=== PATIENT | female | born 1965 | race American Indian/Alaskan Native ===

== ENCOUNTER 2019-03-16 17:14 | Emergency (ER) | payer MEDICARE ==
--- NOTE | 2019-03-16 17:24 | Emergency Department Report ---
ED Abdominal Pain HPI - General Stated Complaint: ABD PAIN Time Seen by Provider: 03/16/19 17:17 Source: patient, EMS Mode of arrival: Stretcher Limitations: No Limitations - History of Present Illness Initial Comments: Patient is a 53-year-old male that presents emergency room with complaints of abdominal pain 3 days. Patient states her abdominal pain is her right upper and right lower quadrant. Patient states it is nonradiating. Patient states the pain is worse with movement and better with rest. Patient states the pain is also worse with palpation. Patient denies nausea and vomiting. Patient describes the pain as a fullness and pressure. Patient was brought here via EMS from local psychiatric facility for evaluation and medical clearance of her abdominal pain. Patient has a sitter because the patient is on a 1013. MD Complaint: abdominal pain -: Sudden Location: LUQ, RUQ Radiation: none Migration to: no migration Severity: severe Severity scale (0 -10): 10 Quality: aching, other Consistency: constant Improves With: rest Worsens With: movement Associated Symptoms: denies: nausea, vomiting, diarrhea, fever, chills, constipation, dysuria, hematemesis, hematochezia, melena, hematuria, anorexia, syncope Treatments Prior to Arrival: other - Related Data LMP (females 10-50): unknown Previous Rx's Medication Instructions Recorded Last Taken Type Esomeprazole Magnesium [NexIUM] 40 mg PO QDAY 15 Days #15 03/16/19 Unknown Rx capsule. Allergies Allergy/AdvReac Type Severity Reaction Status Date / Time latex Allergy Unknown Verified 03/16/19 17:35 levofloxacin [From Levaquin] Allergy Unknown Verified 03/16/19 17:35 Sulfa (Sulfonamide Allergy Unknown Verified 03/16/19 17:35 Antibiotics) ED Review of Systems ROS: Stated complaint: ABD PAIN Other details as noted in HPI Comment: All other systems reviewed and negative Constitutional: denies: chills, fever Eyes: denies: eye pain, eye discharge, vision change ENT: denies: ear pain, throat pain Respiratory: denies: cough, shortness of breath, wheezing Cardiovascular: denies: chest pain, palpitations Endocrine: no symptoms reported Gastrointestinal: abdominal pain. denies: nausea, vomiting, diarrhea Genitourinary: denies: urgency, dysuria, discharge Musculoskeletal: denies: back pain, joint swelling, arthralgia Skin: denies: rash, lesions Neurological: denies: headache, weakness, paresthesias Psychiatric: denies: anxiety, depression Hematological/Lymphatic: denies: easy bleeding, easy bruising ED Past Medical Hx - Past Medical History Previous Medical History?: Yes Hx Hypertension: Yes Hx Diabetes: Yes Hx GERD: Yes Hx Arthritis: Yes Hx Psychiatric Treatment: Yes Hx COPD: Yes Additional medical history: hypothyroidism - Medications Home Medications: Home Medications Medication Instructions Recorded Confirmed Last Taken Type Esomeprazole Magnesium [NexIUM] 40 mg PO QDAY 15 Days #15 03/16/19 Unknown Rx capsule. ED Physical Exam - General Limitations: No Limitations General appearance: alert, in no apparent distress - Head Head exam: Present: atraumatic, normocephalic - Eye Eye exam: Present: normal appearance - ENT ENT exam: Present: mucous membranes moist - Neck Neck exam: Present: normal inspection - Respiratory Respiratory exam: Present: normal lung sounds bilaterally. Absent: respiratory distress, wheezes - Cardiovascular Cardiovascular Exam: Present: regular rate, normal rhythm. Absent: systolic murmur, diastolic murmur, rubs, gallop - GI/Abdominal GI/Abdominal exam: Present: soft, tenderness (right upper quadrant and epigastric tenderness), normal bowel sounds - Extremities Exam Extremities exam: Present: normal inspection - Back Exam Back exam: Present: normal inspection - Neurological Exam Neurological exam: Present: alert, oriented X3 - Psychiatric Psychiatric exam: Present: normal affect, normal mood - Skin Skin exam: Present: warm, dry, intact, normal color. Absent: rash ED Course Vital Signs 03/16/19 03/16/19 03/17/19 17:26 17:34 00:02 Temperature 98.3 F 98.4 F Pulse Rate 69 68 Respiratory 18 18 16 Rate Blood Pressure 136/95 Blood Pressure 136/95 154/72 [Left] O2 Sat by Pulse 100 100 Oximetry - Reevaluation(s) Reevaluation #1: I discussed all results with patient. Patient is stable for discharge. Patient will be discharged home. Patient agrees with plan of care. Patient given discharge instructions. Patient voiced understanding discharge instructions. 03/16/19 20:48 ED Medical Decision Making - Lab Data Result diagrams: 03/16/19 04:34 03/16/19 17:41 - Radiology Data Radiology results: report reviewed CT ABDOMEN AND PELVIS WITH IV CONTRAST INDICATION: Abdominal Pain. COMPARISON: None available. TECHNIQUE: All CT scans at this facility use dose modulation, automated exposure control, iterative reconstruction or weight based dosing, when appropriate, to reduce radiation dose to as low as reasonably achievable. FINDINGS: Lung Bases: No significant abnormality. Skeletal System: No acute abnormality. ABDOMEN: Liver: There are multiple hypodense lesions in the liver which demonstrate peripheral, nodular discontinuous enhancement. The largest in the medial right lobe measures 4.6 cm on coronal image 84. There is also subtle hyperenhancing focus in the superior left hepatic lobe. These are likely hemangiomas. Gallbladder: Removed. Bile Ducts: No significant abnormality. Pancreas: No significant abnormality. Spleen: No significant abnormality. Adrenals: There is a subcentimeter left adrenal nodule which is likely an adenoma. Right Kidney: No significant abnormality. Left Kidney: No significant abnormality. Upper GI tract: No significant abnormality. Lymph Nodes: No significant adenopathy. Aorta: No significant abnormality. Additional Findings: No significant abnormality. PELVIS: Colon: Normal aside from diverticulosis. Urinary Bladder and Distal Ureters: There is artifact related to the arthroplasty which limits evaluation of the distal ureters and bladder. Appendix: No significant abnormality. Lymph Nodes: No significant adenopathy. Additional Findings: None. IMPRESSION: 1. No acute process in the abdomen or pelvis. 2. Incidental findings, as above. - Medical Decision Making Patient is a 53-year-old female that presents emergency room with complaints of right upper quadrant and right lower quadrant pain. Patient presented from a local psychiatric facility. Patient's labs unremarkable. Patient has CT done and was negative for acute findings. Patient's exam is consistent with gastritis. Patient has a surgically removed gallbladder. Patient given Nexium for gastritis. pt discharge back to her psychiatric facility. - Differential Diagnosis abdominal pain. Gastritis. Gastroenteritis. Constipation. Critical care attestation.: If time is entered above; I have spent that time in minutes in the direct care of this critically ill patient, excluding procedure time. ED Disposition Clinical Impression: Abdominal pain Qualifiers: Abdominal location: upper abdomen, unspecified Qualified Code(s): R10.10 - Upper abdominal pain, unspecified Gastritis Qualifiers: Gastritis type: unspecified gastritis Chronicity: acute Gastritis bleeding: without bleeding Qualified Code(s): K29.00 - Acute gastritis without bleeding Disposition: TO HOME OR SELFCARE Is pt being admited?: No Does the pt Need Aspirin: No Condition: Stable Instructions: Gastritis (ED), Diet for Ulcers and Gastritis (ED), Gastroesophageal Reflux Disease (ED), Abdominal Pain (ED) Additional Instructions: Patient to be discharged from the ER and return to her psychiatric facility. Patient to follow up with primary care in 2-3 days. Patient to return to ER if condition worsens. Patient to take meds as directed. Patient increase water. Patient to take Tylenol when necessary for pain. Patient to eat a reflux diet. Prescriptions: Esomeprazole Magnesium [NexIUM] 40 mg PO QDAY 15 Days #15 capsule.dr Referrals: AAM[facility] W[facility]WORTH MD VALDEMAR [Primary Care Provider] - 3-5 Days Time of Disposition: 20:52
[2019-03-16 17:52] LABS: Bilirubin,Urine NEG (Negative); Blood,Urine NEG (Negative); Color,Urine Straw (Yellow); Protein,Urine <15 mg/dL mg/dL (Negative); Urobilinogen,Urine < 2.0 mg/dL (<2.0)
[2019-03-16 18:52] LABS: Basophils % (Auto) 0.3 % (0.0-1.8); Eosinophils # (Auto) 0.1 K/mm3 (0.0-0.4); Eosinophils % (Auto) 1.2 % (0.0-4.3); Hematocrit 37.7 % (30.3-42.9); Hemoglobin 12.2 gm/dl (10.1-14.3); Lymphocytes # (Auto) 2.7 K/mm3 (1.2-5.4); Lymphocytes % (Auto) 28.6 % (13.4-35.0); Mean Corpuscular HGB Conc 33 % (30-34); Mean Corpuscular Volume 92 fl (79-97); Monocytes # (Auto) 0.5 K/mm3 (0.0-0.8); Monocytes % (Auto) 4.8 % (0.0-7.3); Platelet Count 235 K/mm3 (140-440); Red Cell Distribution Width 15.7 % (13.2-15.2)
[2019-03-16 19:16] LABS: Alanine Aminotransferase 43 units/L (7-56); Albumin 4.1 g/dL (3.9-5); BUN/Creatinine Ratio 20; Blood Urea Nitrogen 16 mg/dL (7-17); Calcium 9.6 mg/dL (8.4-10.2); Hemolysis Index 11
[2019-03-16 19:33] LABS: Bilirubin,Direct < 0.2 mg/dL (0-0.2)
[2019-03-16] MEDS ORDERED: DILAUDID IV ONE (19:47)
--- NOTE | 2019-03-16 20:22 | Cat Scan Report ---
CT ABDOMEN AND PELVIS WITH IV CONTRAST INDICATION: Abdominal Pain. COMPARISON: None available. TECHNIQUE: All CT scans at this facility use dose modulation, automated exposure control, iterative reconstructi on or weight based dosing, when appropriate, to reduce radiation dose to as low as reasonably achieva ble. FINDINGS: Lung Bases: No significant abnormality. Skeletal System: No acute abnormality. ABDOMEN: Liver: There are multiple hypodense lesions in the liver which demonstrate peripheral, nodular discon tinuous enhancement. The largest in the medial right lobe measures 4.6 cm on coronal image 84. There is also subtle hyperenhancing focus in the superior left hepatic lobe. These are likely hemangiomas. Gallbladder: Removed. Bile Ducts: No significant abnormality. Pancreas: No significant abnormality. Spleen: No significant abnormality. Adrenals: There is a subcentimeter left adrenal nodule which is likely an adenoma. Right Kidney: No significant abnormality. Left Kidney: No significant abnormality. Upper GI tract: No significant abnormality. Lymph Nodes: No significant adenopathy. Aorta: No significant abnormality. Additional Findings: No significant abnormality. PELVIS: Colon: Normal aside from diverticulosis. Urinary Bladder and Distal Ureters: There is artifact related to the arthroplasty which limits evalua tion of the distal ureters and bladder. Appendix: No significant abnormality. Lymph Nodes: No significant adenopathy. Additional Findings: None. IMPRESSION: 1. No acute process in the abdomen or pelvis. 2. Incidental findings, as above. Signer Name: Paul House MD Signed: 03/16/2019 8:18 PM Workstation Name: [id number]
[2019-03-16] MEDS ORDERED: LIDOCAINE VISCOUS 2% PO ONE (20:52)
[2019-03-16] MEDS ORDERED: ALUM-MAG HYDROX-SIMETH 200-200-20MG/5ML PO ONE (20:52)
[2019-03-17 00:03] VITALS: BP 154/72
== END 2019-03-17 00:02 | disposition home or self-care (01) ==
LOC: ED 17:14
DX: K29.00 Acute gastritis without bleeding (principal); I10 Essential (primary) hypertension; E11.9 Type 2 diabetes mellitus without complications; K21.9 Gastro-esophageal reflux disease without esophagitis; M19.90 Unspecified osteoarthritis, unspecified site; J44.9 Chronic obstructive pulmonary disease, unspecified; E03.9 Hypothyroidism, unspecified; Z91.040 Latex allergy status; Z88.1 Allergy status to other antibiotic agents; Z88.2 Allergy status to sulfonamides
CPT/HCPCS: 36415; 74177; 80048; 80076; 81001; 85025; 96374; 99285; J1170; Q9967

== ENCOUNTER 2019-03-23 20:00 | Emergency (ER) | payer MEDICARE ==
[2019-03-23] MEDS ORDERED: ALBUTEROL 2.5 MG/3 ML NEBU IH ONE (20:55)
[2019-03-23] MEDS ORDERED: predniSONE 50 MG TAB PO STA (20:55)
[2019-03-23 21:28] LABS: Basophils # (Auto) 0.1 K/mm3 (0.0-0.1); Basophils % (Auto) 0.9 % (0.0-1.8); Eosinophils # (Auto) 0.2 K/mm3 (0.0-0.4); Eosinophils % (Auto) 2.5 % (0.0-4.3); Hematocrit 35.7 % (30.3-42.9); Lymphocytes % (Auto) 41.1 % (13.4-35.0); Mean Corpuscular HGB Conc 34 % (30-34); Mean Corpuscular Volume 91 fl (79-97); Monocytes # (Auto) 0.4 K/mm3 (0.0-0.8); Monocytes % (Auto) 5.9 % (0.0-7.3); Platelet Count 249 K/mm3 (140-440); Red Blood Count 3.92 M/mm3 (3.65-5.03); Red Cell Distribution Width 15.8 % (13.2-15.2)
--- NOTE | 2019-03-23 21:44 | Emergency Department Report ---
Blank Doc - Documentation Documentation: 53 y/o morbidly obese female c/o of sob and left arm tingling with worsening s yptoms for the last 1-2 days. symptoms worsen with movement. known asthma history and reports wheezing the last few days not responding to therapy.
[2019-03-23 21:53] LABS: Alanine Aminotransferase 27 units/L (7-56); Albumin 4.3 g/dL (3.9-5); BUN/Creatinine Ratio 16; Blood Urea Nitrogen 16 mg/dL (7-17); Calcium 9.2 mg/dL (8.4-10.2); Hemolysis Index 17
--- NOTE | 2019-03-23 22:08 | XRay Report ---
CHEST 2 VIEWS INDICATION / CLINICAL INFORMATION: Dyspnea. COMPARISON: None available. FINDINGS: SUPPORT DEVICES: None. HEART / MEDIASTINUM: No significant abnormality. LUNGS / PLEURA: No significant pulmonary or pleural abnormality. No pneumothorax. ADDITIONAL FINDINGS: No significant additional findings. IMPRESSION: 1. No acute findings. Signer Name: Johnnie Lorenz MD Signed: 03/23/2019 10:03 PM Workstation Name: [id number]
[2019-03-23] MEDS ORDERED: traMADol 50 MG TAB PO ONE (23:51)
[2019-03-24] MEDS ORDERED: ALBUTEROL 2.5 MG/3 ML NEBU IH ONE (00:20)
[2019-03-24] MEDS ORDERED: predniSONE 50 MG TAB ONE (00:28)
[2019-03-24] MEDS ORDERED: cloNIDine 0.2 MG TAB PO ONE (01:35)
[2019-03-24] MEDS ORDERED: HYDROcodone/ACETAMINOPHEN 5-325 MG TAB PO ONE (01:35)
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
[2019-03-24 05:15] VITALS: BP 168/98
== END 2019-03-24 03:20 | disposition home or self-care (01) ==
LOC: ED 20:00
DX: J44.1 Chronic obstructive pulmonary disease with (acute) exacerbation (principal); I16.0 Hypertensive urgency; I11.0 Hypertensive heart disease with heart failure; I50.9 Heart failure, unspecified; E11.9 Type 2 diabetes mellitus without complications; K21.9 Gastro-esophageal reflux disease without esophagitis; E89.0 Postprocedural hypothyroidism; Z86.73 Personal history of transient ischemic attack (TIA), and cerebral infarction without residual deficits; Z79.899 Other long term (current) drug therapy; Z88.1 Allergy status to other antibiotic agents; Z88.2 Allergy status to sulfonamides; Z91.040 Latex allergy status
CPT/HCPCS: 36415; 71046; 80053; 84484; 85025; 94640; 99284; J7512; 94644

== ENCOUNTER 2019-04-03 17:06 | Emergency (ER) | payer MEDICARE ==
[2019-04-03 17:46] VITALS: BP 144/81
[2019-04-03] MEDS ORDERED: methylPREDNISolone ACETATE 80 MG/1 ML INJ IM ONE (18:24)
[2019-04-03] MEDS ORDERED: CYCLOBENZAPRINE 10 MG TAB PO ONE (18:24)
[2019-04-03] MEDS ORDERED: IBUPROFEN 800 MG TAB PO ONE (18:24)
--- NOTE | 2019-04-03 18:25 | Emergency Department Report ---
ED Back Pain/Injury HPI - General Chief Complaint: Fall Stated Complaint: LEFT SIDE INJURY Time Seen by Provider: 04/03/19 18:24 Source: patient Limitations: No Limitations - History of Present Illness Initial Comments: 53 yo AA female comes to ER from [facility]. Last night she sat on the end of the bed and it let go and she fell to the floor. She was fine then but today the staff noted her limping so they sent her to the ER to be evaluated. pt ambulatory to ER. Being treated for depression at [facility]. no si. no hi. MD Complaint: back pain -: Sudden, days(s) Similar Symptoms Previously: Yes Radiation: none Severity: moderate Quality: dull Improves With: immobilization Worsens With: movement Associated Symptoms: denies other symptoms - Related Data Previous Rx's Medication Instructions Recorded Last Taken Type Esomeprazole Magnesium [NexIUM] 40 mg PO QDAY 15 Days #15 03/16/19 Unknown Rx capsule. ALBUTEROL Inhaler (OR & NICU) 2 puff IH QID PRN #1 inhalation 03/24/19 Unknown Rx [ProAir HFA Inhaler] Benzonatate [Tessalon Perles] 100 mg PO Q8HR #10 capsule 03/24/19 Unknown Rx HYDROcodone/APAP 5-325 [[place] 1 each PO Q6HR PRN #10 tablet 03/24/19 Unknown Rx 5/325] cloNIDine [Catapres] 0.1 mg PO BID #30 tablet 03/24/19 Unknown Rx predniSONE [Deltasone] 20 mg PO QDAY #5 tab 03/24/19 Unknown Rx tiZANidine [Zanaflex 4mg TAB] 4 mg PO Q8H PRN #15 tablet 04/03/19 Unknown Rx traMADol [Ultram] 50 mg PO Q6HR PRN #12 tablet 04/03/19 Unknown Rx Allergies Allergy/AdvReac Type Severity Reaction Status Date / Time latex Allergy Unknown Verified 04/03/19 17:46 levofloxacin [From Levaquin] Allergy Unknown Verified 04/03/19 17:46 Sulfa (Sulfonamide Allergy Unknown Verified 04/03/19 17:46 Antibiotics) ED Review of Systems ROS: Stated complaint: LEFT SIDE INJURY Other details as noted in HPI Comment: All other systems reviewed and negative ED Past Medical Hx - Past Medical History hypothyroidism, OBESE, MD Psychiatric history: no pertinent history CLINICAL NURSE MANAGER history: no CLINICAL NURSE MANAGER history ED Back Pain Physical Exam - Exam General: Vital signs noted. No distress. Alert and acting appropriately. neurovascular intact ambulatory full rom of leg Back/Abdomen: No Abdominal Tenderness, No Perithoracic Tenderness, No Perilumbar Tenderness, No Sacroiliac Tenderness, No Flank Tenderness, No Straight Leg Raise Pain Neuro: Yes Normal Sensation, Yes Normal DTR's, Yes Normal Gait, No Motor Weakness ED Course Vital Signs 04/03/19 17:45 Temperature 98.4 F Pulse Rate 83 Respiratory 18 Rate Blood Pressure 144/81 [Right] O2 Sat by Pulse 97 Oximetry Ed Back Pain Tests - Tests Tests: Normal X Rays ED Medical Decision Making - Radiology Data Radiology results: report reviewed, image reviewed - Medical Decision Making SP FALL XRAY NOTED MEDICATED FOR PAIN DC BACK TO [facility] WITH PCP FOLLOW UP Vital Signs 04/03/19 17:45 Temperature 98.4 F Pulse Rate 83 Respiratory 18 Rate Blood Pressure 144/81 [Right] O2 Sat by Pulse 97 Oximetry - Differential Diagnosis RO FX Critical care attestation.: If time is entered above; I have spent that time in minutes in the direct care of this critically ill patient, excluding procedure time. ED Disposition Clinical Impression: Fall from ground level, Hip pain, Back pain, Contusion Disposition: DC-01 TO HOME OR SELFCARE Is pt being admited?: No Does the pt Need Aspirin: No Condition: Stable Additional Instructions: WARM BATHS AND COMPRESSES MED ORDERED TODAY FOLLOW UP WITH PCP IF PAIN PERSISTS. Prescriptions: traMADol [Ultram] 50 mg PO Q6HR PRN #12 tablet PRN Reason: Pain tiZANidine [Zanaflex 4mg TAB] 4 mg PO Q8H PRN #15 tablet PRN Reason: Muscle Spasm Referrals: BLAYNE GABRIEL MD [Staff Physician] - 3-5 Days Time of Disposition: 18:34
[2019-04-03] MEDS ORDERED: traMADol 50 MG TAB PO ONE (19:41)
--- NOTE | 2019-04-03 20:11 | XRay Report ---
LEFT HIP, 3 VIEWS 04/03/2019 INDICATION / CLINICAL INFORMATION: PAIN SP FALL. COMPARISON: None available. FINDINGS: Bilateral: Hip arthroplasty. No evidence of acute fracture. No prosthesis dislocation. Signer Name: Johnnie Lorenz MD Signed: 04/03/2019 8:07 PM Workstation Name: [id number]
== END 2019-04-03 20:42 | disposition home or self-care (01) ==
LOC: ED 17:06
DX: S70.02XA Contusion of left hip, initial encounter (principal); M25.552 Pain in left hip; Z88.2 Allergy status to sulfonamides; Z88.1 Allergy status to other antibiotic agents; Z91.040 Latex allergy status; W06.XXXA Fall from bed, initial encounter; Y93.89 Activity, other specified; Y92.89 Other specified places as the place of occurrence of the external cause; Y99.8 Other external cause status
CPT/HCPCS: 73502; 96372; 99283; J1040

== ENCOUNTER 2019-06-22 15:43 | Inpatient (IN) | payer MEDICARE ==
[2019-06-22] MEDS ORDERED: IPRATROPIUM 0.02% NEBU 2.5 ML IH ONE (16:07)
[2019-06-22] MEDS ORDERED: ALBUTEROL 2.5 MG/3 ML NEBU IH ONE ×2 (16:07→18:22)
[2019-06-22] MEDS ORDERED: methylPREDNISolone Sod Succinate 125 MG/2 ML INJ IV ONE (16:08)
[2019-06-22] MEDS ORDERED: FUROSEMIDE 40 MG/4 ML INJ IV ONE (16:18)
--- NOTE | 2019-06-22 16:23 | Emergency Department Report ---
ED Shortness of Breath HPI - General Chief Complaint: Dyspnea/Respdistress Stated Complaint: RESP DISTRESS Time Seen by Provider: 06/22/19 16:15 Source: EMS Mode of arrival: Stretcher Limitations: No Limitations - History of Present Illness Initial Comments: Patient is 53 years old female with history of COPD, congestive heart failure, hypertension. Patient presented to the ER via EMS for evaluation of difficulty breathing and shortness of breath for the last 3 days, worse today. Patient stated that she has been coughing greenish sputum also. Patient stated that she is out of her Lasix for the last 7 days. Patient denied any fever or chills. No chest pain. MD Complaint: shortness of breath, cough -: days(s) Severity: moderate Pain Scale: 7 Known History Of: COPD, congestive heart failure Context: recent URI Treatments Prior to Arrival: oxygen, bronchodilator - Related Data Previous Rx's Medication Instructions Recorded Last Taken Type Esomeprazole Magnesium [NexIUM] 40 mg PO QDAY 15 Days #15 03/16/19 Unknown Rx capsule. ALBUTEROL Inhaler (OR & NICU) 2 puff IH QID PRN #1 inhalation 03/24/19 Unknown R x [ProAir HFA Inhaler] Benzonatate [Tessalon Perles] 100 mg PO Q8HR #10 capsule 03/24/19 Unknown Rx HYDROcodone/APAP 5-325 [[place] 1 each PO Q6HR PRN #10 tablet 03/24/19 Unknown Rx 5/325] cloNIDine [Catapres] 0.1 mg PO BID #30 tablet 03/24/19 Unknown Rx predniSONE [Deltasone] 20 mg PO QDAY #5 tab 03/24/19 Unknown Rx tiZANidine [Zanaflex 4mg TAB] 4 mg PO Q8H PRN #15 tablet 04/03/19 Unknown Rx traMADoL [Ultram] 50 mg PO Q6HR PRN #12 tablet 04/03/19 Unknown Rx Allergies Allergy/AdvReac Type Severity Reaction Status Date / Time latex Allergy Unknown Verified 04/03/19 17:46 levofloxacin [From Levaquin] Allergy Unknown Verified 04/03/19 17:46 Sulfa (Sulfonamide Allergy Unknown Verified 04/03/19 17:46 Antibiotics) ED Review of Systems ROS: Stated complaint: RESP DISTRESS Other details as noted in HPI Comment: All other systems reviewed and negative Constitutional: denies: chills, fever Respiratory: cough, orthopnea, shortness of breath, SOB with exertion, SOB at rest, wheezing Cardiovascular: dyspnea on exertion, orthopnea. 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 ALBUTEROL Inhaler (OR & NICU) 2 puff IH QID PRN #1 inhalation 03/24/19 Unknown Rx [ProAir HFA Inhaler] Benzonatate [Tessalon Perles] 100 mg PO Q8HR #10 capsule 03/24/19 Unknown Rx HYDROcodone/APAP 5-325 [[place] 1 each PO Q6HR PRN #10 tablet 03/24/19 Unknown Rx 5/325] cloNIDine [Catapres] 0.1 mg PO BID #30 tablet 03/24/19 Unknown Rx predniSONE [Deltasone] 20 mg PO QDAY #5 tab 03/24/19 Unknown Rx tiZANidine [Zanaflex 4mg TAB] 4 mg PO Q8H PRN #15 tablet 04/03/19 Unknown Rx traMADoL [Ultram] 50 mg PO Q6HR PRN #12 tablet 04/03/19 Unknown Rx ED Physical Exam - General Limitations: No Limitations General appearance: alert, in distress (moderate respiratory distress) - Head Head exam: Present: atraumatic, normocephalic, normal inspection - Eye Eye exam: Present: normal appearance - ENT ENT exam: Present: normal exam, normal orophraynx, mucous membranes moist - Neck Neck exam: Present: normal inspection, full ROM. Absent: tenderness, meningismus - Respiratory Respiratory exam: Present: respiratory distress, wheezes, rales, rhonchi, accessory muscle use, decreased breath sounds, prolonged expiratory. Absent: stridor - Cardiovascular Cardiovascular Exam: Present: regular rate, normal rhythm, normal heart sounds - GI/Abdominal GI/Abdominal exam: Present: soft, normal bowel sounds. Absent: distended, tenderness, guarding, rebound, rigid, organomegaly, mass, bruit, pulsatile mass, hernia - Extremities Exam Extremities exam: Present: normal inspection, full ROM, normal capillary refill. Absent: pedal edema, calf tenderness - Back Exam Back exam: Present: normal inspection, full ROM. Absent: CVA tenderness (R), CVA tenderness (L) - Neurological Exam Neurological exam: Present: alert, oriented X3, CN II-XII intact, normal gait, reflexes normal - Psychiatric Psychiatric exam: Present: normal mood - Skin Skin exam: Present: warm, intact, normal color ED Course Vital Signs 06/22/19 06/22/19 06/22/19 15:58 16:00 16:10 Temperature 99.0 F Pulse Rate 83 85 Pulse Rate [ 90 Anterior Bilateral Throughout] Respiratory 25 H 19 Rate Respiratory 20 Rate [Anterior Bilateral Throughout] Blood Pressure 152/80 Blood Pressure 152/80 [Left] O2 Sat by Pulse 98 98 Oximetry 06/22/19 06/22/19 06/22/19 16:30 16:58 17:30 Temperature Pulse Rate 85 Pulse Rate [ Anterior Bilateral Throughout] Respiratory 18 Rate Respiratory Rate [Anterior Bilateral Throughout] Blood Pressure 157/102 162/81 Blood Pressure [Left] O2 Sat by Pulse 99 96 Oximetry 06/22/19 06/22/19 17:57 18:00 Temperature Pulse Rate 94 H 107 H Pulse Rate [ Anterior Bilateral Throughout] Respiratory 26 H 22 Rate Respiratory Rate [Anterior Bilateral Throughout] Blood Pressure 114/62 Blood Pressure 114/62 [Left] O2 Sat by Pulse 96 92 Oximetry ED Medical Decision Making - Lab Data Result diagrams: 06/22/19 16:54 - EKG Data -: EKG Interpreted by Wy EKG shows normal: sinus rhythm Rate: normal - EKG Data Interpretation: no acute changes - Radiology Data Radiology results: report reviewed - Medical Decision Making Patient is 53 years old female with history of COPD, congestive heart failure, hypertension. Patient presented to the ER via EMS for evaluation of difficulty breathing and shortness of breath for the last 3 days, worse today. Patient stated that she has been coughing greenish sputum also. Patient stated that she is out of her Lasix for the last 7 days. Patient denied any fever or chills. No chest pain. Patient received albuterol 10 mg twice, Atrovent 1 mg, 20 mg of Decadron and 2 g of magnesium sulfate. Patient stated that she is feeling better but still having difficulty breathing with diffuse wheezing. Labs reviewed and is unremarkable. Chest x-ray is unremarkable. I discussed the patient is Dr. Barrientos, he agreed to admit the patient to medical service for further management. Critical Care Time: Yes Critical care time in (mins) excluding proc time.: 30 Critical care attestation.: If time is entered above; I have spent that time in minutes in the direct care of this critically ill patient, excluding procedure time. ED Disposition Clinical Impression: COPD exacerbation, Acute exacerbation of CHF (congestive heart failure) Disposition: OP ADMIT IP TO THIS HOSP Is pt being admited?: Yes Condition: Stable Instructions: Chronic Obstructive Pulmonary Disease (ED)
--- NOTE | 2019-06-22 16:46 | XRay Report ---
CHEST 1 VIEW INDICATION: MAIN: sob; Pt reports difficulty breathing that started today at about 1 pm. Unrelieved by Albuterol inhaler at home. Hx of Asthma, COPD, CHF, and DM 2. . COMPARISON: 03/23/2019. FINDINGS: Support devices: None. Heart: Within normal limits. Lungs/Pleura: No acute air space or interstitial disease. Additional findings: None. IMPRESSION: No acute abnormality. Signer Name: Helio Rebollar MD Signed: 06/22/2019 4:41 PM Workstation Name: [id number]
[2019-06-22 17:11] LABS: Basophils % (Auto) 0.6 % (0.0-1.8); Eosinophils # (Auto) 0.1 K/mm3 (0.0-0.4); Eosinophils % (Auto) 0.9 % (0.0-4.3); Hematocrit 35.7 % (30.3-42.9); Hemoglobin 11.7 gm/dl (10.1-14.3); Lymphocytes # (Auto) 1.6 K/mm3 (1.2-5.4); Lymphocytes % (Auto) 23.9 % (13.4-35.0); Mean Corpuscular HGB Conc 33 % (30-34); Mean Corpuscular Volume 89 fl (79-97); Monocytes # (Auto) 0.3 K/mm3 (0.0-0.8); Platelet Count 277 K/mm3 (140-440); Red Blood Count 4.02 M/mm3 (3.65-5.03); Red Cell Distribution Width 15.7 % (13.2-15.2)
[2019-06-22 17:22] LABS: INR 0.99 (0.87-1.13)
[2019-06-22 17:29] LABS: Alanine Aminotransferase 23 units/L (7-56); Albumin 3.7 g/dL (3.9-5)
[2019-06-22] MEDS ORDERED: methylPREDNISolone Sod Succinate 125 MG/2 ML INJ ONE (17:53)
[2019-06-22 18:03] LABS: Bilirubin,Direct < 0.2 mg/dL (0-0.2)
[2019-06-22] MEDS ORDERED: MORPHINE 4 MG/1 ML INJ IV ONE (18:41)
[2019-06-22] MEDS ORDERED: ONDANSETRON 4 MG/2 ML INJ IV ONE (18:41)
[2019-06-22 19:12] LABS: BUN/Creatinine Ratio 13; Blood Urea Nitrogen 14 mg/dL (7-17); Calcium 8.6 mg/dL (8.4-10.2); Hemolysis Index 38
[2019-06-22] MEDS ORDERED: MORPHINE 4 MG/1 ML INJ ONE ×2 (19:37→19:44)
[2019-06-22] MEDS ORDERED: ONDANSETRON 4 MG/2 ML INJ ONE (19:38)
[2019-06-22] MEDS ORDERED: POTASSIUM CHLORIDE ER 20 MEQ TAB PO ONE ×2 (20:04→20:28)
[2019-06-22] MEDS ORDERED: DEXTROSE 50% IN WATER (25GM) 50 ML SYRINGE IV PRN (20:09)
[2019-06-22] MEDS ORDERED: ACETAMINOPHEN 325 MG TAB PO PRN (20:09)
[2019-06-22] MEDS ORDERED: ONDANSETRON 4 MG/2 ML INJ IV PRN (20:09)
--- NOTE | 2019-06-22 20:25 | History and Physical Report ---
History of Present Illness Date of examination: 06/22/19 Date of admission: 06/22/19 18:43 Chief complaint: SOB History of present illness: 53-year-old -Irish female who is an ongoing smoker with a history of COPD, CHF, hypertension, diabetes, GERD, arthritis, hypothyroidism, TIA x5 who presents to [facility] ED via EMS with complaints of shortness of breath and difficulty breathing for the past 3 days. Patient states that she has been experiencing progressively worsening shortness of breath over the past 3 days. She is unable to walk more than 10 feet without becoming short of breath. Patient was at [facility] today when she suddenly became short of breath and felt like she could not breathe. She tried using her rescue inhaler with no relief. EMS was called and patient was transferred to our facility for further evaluation and management. Patient states she was admitted to the [facility] 1 week ago for similar complaints. She also complains of frequent cough with green sputum production. Patient states that she takes Lasix but ran out about a week ago and has not been able to get a new prescription. Admits shortness of breath at rest, worsening shortness of breath with exertion, orthopnea, wheezing, and discolored sputum production. Denies fever, nausea, vomiting, headache, or hemoptysis. 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 ALBUTEROL Inhaler (OR & NICU) 2 puff IH QID PRN #1 inhalation 03/24/19 Unknown Rx [ProAir HFA Inhaler] Benzonatate [Tessalon Perles] 100 mg PO Q8HR #10 capsule 03/24/19 Unknown Rx HYDROcodone/APAP 5-325 [[place] 1 each PO Q6HR PRN #10 tablet 03/24/19 Unknown Rx 5/325] cloNIDine [Catapres] 0.1 mg PO BID #30 tablet 03/24/19 Unknown Rx predniSONE [Deltasone] 20 mg PO QDAY #5 tab 03/24/19 Unknown Rx tiZANidine [Zanaflex 4mg TAB] 4 mg PO Q8H PRN #15 tablet 04/03/19 Unknown Rx traMADoL [Ultram] 50 mg PO Q6HR PRN #12 tablet 04/03/19 Unknown Rx Active Meds: Active Medications Acetaminophen (Tylenol) 650 mg PO Q4H PRN PRN Reason: Pain MILD(1-3)/Fever >100.5/MALDONADO Albuterol/Ipratropium (Duoneb *Not For Prn Use*) 1 ampul IH Q6HRT RADAMES Budesonide (Pulmicort) 0.5 mg IH Q12HRT RADAMES Clonidine HCl (Catapres) 0.1 mg PO BID RADAMES Dextrose (D50w (25gm) Syringe) 50 ml IV Q30MIN PRN; Protocol PRN Reason: Hypoglycemia Docusate Sodium (Colace) 100 mg PO BID RADAMES Guaifenesin (Mucinex Er) 600 mg PO BID RADAMES Heparin Sodium (Porcine) (Heparin) 5,000 unit SUB-Q Q12HR RADAMES Hydralazine HCl (Apresoline) 10 mg IV Q4HR PRN PRN Reason: Blood Pressure Potassium Chloride (Kcl 10meq/100ml) 10 meq in 100 mls @ 100 mls/hr IV Q1H [facility] Stop: 06/22/19 22:09 Ceftriaxone Sodium (Rocephin/Ns 1 Gm/50 Ml) 1 gm in 50 mls @ 100 mls/hr IV Q24HR RADAMES; Protocol Azithromycin 500 mg/ Sodium (Chloride) 250 mls @ 250 mls/hr IV Q24HR RADAMES; P rotocol Insulin Glargine (Lantus) 10 units SUB-Q QHS RADAMES Insulin Human Lispro (Humalog) 0 unit SUB-Q ACHS RADAMES; Protocol Methylprednisolone Sodium Succinate (Solu-Medrol) 80 mg IV Q8HR RADAMES Ondansetron HCl (Zofran) 4 mg IV Q8H PRN PRN Reason: Nausea And Vomiting Pantoprazole Sodium (Protonix) 40 mg PO BID RADAMES Sodium Chloride (Sodium Chloride Flush Syringe 10 Ml) 10 ml IV BID RADAMES Sodium Chloride (Sodium Chloride Flush Syringe 10 Ml) 10 ml IV PRN PRN PRN Reason: LINE FLUSH Review of Systems All systems: negative Cardiovascular: orthopnea, shortness of breath, dyspnea on exertion Respiratory: cough, cough with sputum (greenish sputum), shortness of breath, wheezing Exam - Physical Exam Narrative exam: Physical exam General appearance: Present: mild distress, alert and oriented 3, obese, adult female - EENT Eyes: Present: PERRL, EOM intact ENT: hearing intact, normal dentition - Neck Neck: Present: supple, normal ROM - Respiratory Respiratory effort: slightly labored on 4L supplemental O2 Respiratory: scattered wheezing - Cardiovascular Heart rate: 91 (bpm) Rhythm: Sinus rhythm Heart Sounds: Present: S1 & S2. Absent: rub, click - Extremities Extremities: no ischemia, pulses intact, - Peripheral Assessment Peripheral Pulses: within normal limits - Abdominal General gastrointestinal: obese, soft, non-tender, normal bowel sounds - Integumentary Integumentary: Present: warm, dry - Musculoskeletal Musculoskeletal: Able to move all extremities -Neurological Neurological: CN II-XII intact - Psychiatric Psychiatric:tearful ,cooperative - Constitutional Vitals: Temp Pulse Resp BP Pulse Ox 99.0 F 94 H 20 114/62 94 06/22/19 15:58 06/22/19 18:35 06/22/19 19:46 06/22/19 18:00 06/22/19 19:18 Results - Labs CBC & Chem 7: 06/22/19 16:54 06/22/19 16:54 Labs: Laboratory Last Values WBC 6.6 K/mm3 (4.5-11.0) 06/22/19 16:54 RBC 4.02 M/mm3 (3.65-5.03) 06/22/19 16:54 Hgb 11.7 gm/dl (10.1-14.3) 06/22/19 16:54 Hct 35.7 % (30.3-42.9) 06/22/19 16:54 MCV 89 fl (79-97) 06/22/19 16:54 MCH 29 pg (28-32) 06/22/19 16:54 MCHC 33 % (30-34) 06/22/19 16:54 RDW 15.7 % (13.2-15.2) H 06/22/19 16:54 Plt Count 277 K/mm3 (140-440) 06/22/19 16:54 Lymph % (Auto) 23.9 % (13.4-35.0) 06/22/19 16:54 [place] % (Auto) 4.0 % (0.0-7.3) 06/22/19 16:54 Eos % (Auto) 0.9 % (0.0-4.3) 06/22/19 16:54 Baso % (Auto) 0.6 % (0.0-1.8) 06/22/19 16:54 Lymph # 1.6 K/mm3 (1.2-5.4) 06/22/19 16:54 [place] # 0.3 K/mm3 (0.0-0.8) 06/22/19 16:54 Eos # 0.1 K/mm3 (0.0-0.4) 06/22/19 16:54 Baso # 0.0 K/mm3 (0.0-0.1) 06/22/19 16:54 Seg Neutrophils % 70.6 % (40.0-70.0) H 06/22/19 16:54 Seg Neutrophils # 4.7 K/mm3 (1.8-7.7) 06/22/19 16:54 PT 13.2 Sec. (12.2-14.9) 06/22/19 16:54 INR 0.99 (0.87-1.13) 06/22/19 16:54 Sodium 139 mmol/L (137-145) 06/22/19 16:54 Potassium 2.9 mmol/L (3.6-5.0) L* 06/22/19 16:54 Chloride 94.8 mmol/L (98-107) L 06/22/19 16:54 Carbon Dioxide 23 mmol/L (22-30) 06/22/19 16:54 Anion Gap 24 mmol/L 06/22/19 16:54 BUN 14 mg/dL (7-17) 06/22/19 16:54 Creatinine 1.1 mg/dL (0.7-1.2) 06/22/19 16:54 Estimated GFR > 60 ml/min 06/22/19 16:54 BUN/Creatinine Ratio 13 % 06/22/19 16:54 Glucose 212 mg/dL (65-100) H 06/22/19 16:54 Calcium 8.6 mg/dL (8.4-10.2) 06/22/19 16:54 Total Bilirubin < 0.20 mg/dL (0.1-1.2) 06/22/19 16:54 Direct Bilirubin < 0.2 mg/dL (0-0.2) 06/22/19 16:54 Indirect Bilirubin 0.0 mg/dL 06/22/19 16:54 AST 19 units/L (5-40) 06/22/19 16:54 ALT 23 units/L (7-56) 06/22/19 16:54 Alkaline Phosphatase 68 units/L (35-129) 06/22/19 16:54 Troponin T < 0.010 ng/mL (0.00-0.029) 06/22/19 16:54 NT-Pro-B Natriuret Pep 183.7 pg/mL (0-900) 06/22/19 16:54 Total Protein 7.1 g/dL (6.3-8.2) 06/22/19 16:54 Albumin 3.7 g/dL (3.9-5) L 06/22/19 16:54 Albumin/Globulin Ratio 1.1 % 06/22/19 16:54 - Imaging and Cardiology Imaging and Cardiology: CXR: Lung/pleura: No acute airspace or interstitial disease. Impression: no acute abnormality Assessment and Plan Assessment and plan: 53-year-old -Irish female who is an ongoing smoker with a history of COPD, CHF, hypertension, diabetes, GERD, arthritis, hypothyroidism, TIA x5 who presents to [facility] ED via EMS with complaints of progressively worsening shortness of breath and difficulty breathing for the past 3 days. Acute exacerbation COPD -Increased shortness of breath -Increased cough with green sputum production -Scheduled to DuoNebs and Pulmicort, albuterol when necessary -Patient has allergy to Levaquin will start on Rocephin and azithromycin -Start Mucinex -IV systemic steroids Acute hypoxic respiratory failure -No Baseline home oxygen requirements -Saturation in mid 80s on room air -Currently on supplemental O2 -Monitor saturations -Continue supplemental oxygen wean as tolerated Hypokalemia -Potassium on admission 2.9 -Ordered potassium replacement -Continue to monitor replete prn HTN -Monitor BP -Resume home hypertensive meds once medication reconciliation has been completed -IV hydralazine when necessary DM -POC BG monitoring -Scheduled Lantus, and SSI coverage prn -HgbA1C pending GERD -on Protonix BID Obesity -BMI 45.2 -Diet and lifestyle modifications -May benefit from OP weight mgmt program -Pt states that she plans on going to obesity class Tobacco abuse -Current every day smoker -Smokes 1 pack per day -Counseled for cessation -Nicotine patch when necessary Hx CHF -BNP WNL -Troponin negative -Resume home Lasix once medication reconciliation has been completed DVT PPX -On Heparin and SCD's Advance Directives: No VTE prophylaxis?: Chemical Plan of care discussed with patient/family: Yes
[2019-06-22] MEDS: PANTOPRAZOLE 40 MG TAB PO SCH (21:30)
[2019-06-22] MEDS: guaiFENesin ER 600 MG TAB PO SCH (21:30)
[2019-06-22] MEDS: cloNIDine 0.1 MG TAB PO SCH (21:30)
[2019-06-22] MEDS: HEPARIN 5,000 UNIT/1 ML VIAL SUB-Q SCH (21:31)
[2019-06-22] MEDS: methylPREDNISolone Sod Succinate 125 MG/2 ML INJ IV SCH (21:31)
[2019-06-22] MEDS: DOCUSATE SODIUM 100 MG CAP PO SCH (21:31)
[2019-06-22] MEDS: NICOTINE 14 MG/24 HR PATCH TD SCH (21:32)
[2019-06-22] MEDS ORDERED: SODIUM CHLORIDE 0.9% 250ML 250 ML IV ONE (21:33)
[2019-06-22] MEDS: cefTRIAXone/NS 1 GM/50 ML 1 GM/50 ML BAG IV SCH (22:27)
[2019-06-22] MEDS: INSULIN LISPRO 100 UNIT/ML SUB-Q SCH (22:28)
[2019-06-22] MEDS: INSULIN GLARGINE 100 UNITS/ML SUB-Q SCH (22:28)
[2019-06-22] MEDS: AZITHROMYCIN 500 MG in SODIUM CHLORIDE 0.9% 250ML 250 ML IV SCH (22:38)
[2019-06-23] MEDS ORDERED: QUEtiapine 50 MG, QUEtiapine 100 MG PO ONE (00:16)
[2019-06-23] MEDS: POTASSIUM CHLORIDE 10 MEQ 10 MEQ/100 ML BAG IV SCH ×2 (00:33→03:00)
[2019-06-23] MEDS: IPRATROPIUM/ALBUTEROL SULFATE 3 ML AMPUL.NEB IH SCH ×4 (04:23→21:33)
[2019-06-23] MEDS: methylPREDNISolone Sod Succinate 125 MG/2 ML INJ IV SCH ×3 (05:25→22:18)
[2019-06-23 05:42] LABS: Basophils % (Auto) 0.1 % (0.0-1.8); Hematocrit 33.9 % (30.3-42.9); Hemoglobin 10.9 gm/dl (10.1-14.3); Lymphocytes # (Auto) 0.7 K/mm3 (1.2-5.4); Lymphocytes % (Auto) 13.5 % (13.4-35.0); Mean Corpuscular HGB Conc 32 % (30-34); Mean Corpuscular Volume 90 fl (79-97); Monocytes # (Auto) 0.1 K/mm3 (0.0-0.8); Monocytes % (Auto) 1.2 % (0.0-7.3); Platelet Count 265 K/mm3 (140-440); Red Blood Count 3.79 M/mm3 (3.65-5.03); Red Cell Distribution Width 15.9 % (13.2-15.2)
[2019-06-23 06:00] LABS: BUN/Creatinine Ratio 14; Blood Urea Nitrogen 15 mg/dL (7-17); Calcium 8.6 mg/dL (8.4-10.2); Hemolysis Index 15
[2019-06-23] MEDS: BUDESONIDE 0.5 MG/2 ML NEBU IH SCH ×2 (08:35→21:32)
[2019-06-23] MEDS: INSULIN LISPRO 100 UNIT/ML SUB-Q SCH ×4 (09:04→22:19)
[2019-06-23] MEDS: NICOTINE 14 MG/24 HR PATCH TD SCH (11:18)
[2019-06-23] MEDS: cefTRIAXone/NS 1 GM/50 ML 1 GM/50 ML BAG IV SCH (11:18)
[2019-06-23] MEDS: cloNIDine 0.1 MG TAB PO SCH ×2 (11:19→22:19)
[2019-06-23] MEDS: guaiFENesin ER 600 MG TAB PO SCH ×2 (11:20→22:20)
[2019-06-23] MEDS: PANTOPRAZOLE 40 MG TAB PO SCH ×2 (11:21→22:19)
[2019-06-23] MEDS: DOCUSATE SODIUM 100 MG CAP PO SCH ×2 (11:21→22:19)
[2019-06-23] MEDS: HEPARIN 5,000 UNIT/1 ML VIAL SUB-Q SCH ×2 (11:21→22:19)
[2019-06-23] MEDS: AZITHROMYCIN 500 MG in SODIUM CHLORIDE 0.9% 250ML 250 ML IV SCH (12:09)
--- NOTE | 2019-06-23 20:36 | Progress Note ---
Assessment and Plan 53-year-old -[place] female who is an ongoing smoker with a history of COPD, CHF, hypertension, diabetes, GERD, arthritis, hypothyroidism, TIA x5 who presents to [facility] ED via EMS with complaints of progressively worsening shortness of breath and difficulty breathing for the past 3 days. Acute exacerbation COPD -Increased shortness of breath -Increased cough with green sputum production -Continue DuoNebs and Pulmicort, Rocephin and azithromycin, and Mucinex. Patient allergic to Levaquin -IV Solu-Medrol Acute hypoxic respiratory failure -No Baseline home oxygen requirements -Saturation in mid 80s on room air -Currently on supplemental O2 -Monitor saturations -Continue supplemental oxygen wean as tolerated Hypokalemia - corrected -Continue to monitor replete prn HTN -Monitor BP -Resume home hypertensive meds once medication reconciliation has been completed -IV hydralazine when necessary DM -POC BG monitoring -Scheduled Lantus, and SSI coverage prn -HgbA1C pending GERD -on Protonix BID Obesity -BMI 45.2 -Diet and lifestyle modifications -May benefit from OP weight mgmt program -Pt states that she plans on going to obesity class Tobacco abuse -Current every day smoker -Smokes 1 pack per day -Counseled for cessation -Nicotine patch when necessary Hx CHF -BNP WNL -Troponin negative -Resume home Lasix once medication reconciliation has been completed DVT PPX -On Heparin and SCD's Advance Directives: No VTE prophylaxis?: Chemical Plan of care discussed with patient/family: Yes Subjective Date of service: 06/23/19 Principal diagnosis: shortness of breath, wheezing, morbid obesity Interval history: Patient still coughing and wheezing. Sitting up in bed and having breakfast Objective - Constitutional Vitals: Vital Signs - 12hr 06/23/19 06/23/19 06/23/19 08:39 10:00 10:42 Temperature Pulse Rate Pulse Rate [ 88 Anterior Bilateral Throughout] Respiratory Rate Respiratory 20 Rate [Anterior Bilateral Throughout] Blood Pressure O2 Sat by Pulse 95 97 Oximetry 06/23/19 06/23/19 06/23/19 11:19 13:39 16:21 Temperature 97.8 F 97.8 F Pulse Rate 83 82 Pulse Rate [ 82 Anterior Bilateral Throughout] Respiratory 20 20 Rate Respiratory 20 Rate [Anterior Bilateral Throughout] Blood Pressure 150/87 116/78 O2 Sat by Pulse 95 92 Oximetry General appearance: Present: no acute distress, well-nourished - EENT Eyes: PERRL, EOM intact Ears: bilateral: normal - Neck Neck: supple, normal ROM - Respiratory Respiratory effort: normal Respiratory: bilateral: diminished, wheezing - Cardiovascular Rhythm: regular Heart Sounds: Present: S1 & S2. Absent: gallop, rub Extremities: pulses intact, No edema, normal color, Full ROM - Gastrointestinal General gastrointestinal: Present: soft, non-tender, non-distended, normal bowel sounds - Integumentary Integumentary: clear, warm, dry - Musculoskeletal Musculoskeletal: 1, strength equal bilaterally - Neurologic Neurologic: moves all extremities - Labs CBC & Chem 7: 06/23/19 05:09 06/23/19 05:09 Labs: Abnormal lab results 06/22/19 06/23/19 06/23/19 Range/Units 21:38 05:09 05:09 RDW 15.9 H (13.2-15.2) % Lymph # 0.7 L (1.2-5.4) K/mm3 Seg Neutrophils % 85.2 H (40.0-70.0) % Glucose 428 H (65-100) mg/dL POC Glucose 435 H (70-105) Hemoglobin A1c (4-6) % 06/23/19 06/23/19 06/23/19 Range/Units 05:09 07:48 11:26 RDW (13.2-15.2) % Lymph # (1.2-5.4) K/mm3 Seg Neutrophils % (40.0-70.0) % Glucose (65-100) mg/dL POC Glucose 325 H 340 H (70-105) Hemoglobin A1c 8.2 H (4-6) % 06/23/19 Range/Units 16:29 RDW (13.2-15.2) % Lymph # (1.2-5.4) K/mm3 Seg Neutrophils % (40.0-70.0) % Glucose (65-100) mg/dL POC Glucose 326 H (70-105) Hemoglobin A1c (4-6) %
[2019-06-23] MEDS: INSULIN GLARGINE 100 UNITS/ML SUB-Q SCH (22:39)
[2019-06-24] MEDS: methylPREDNISolone Sod Succinate 125 MG/2 ML INJ IV SCH ×3 (06:31→22:05)
[2019-06-24] MEDS: BUDESONIDE 0.5 MG/2 ML NEBU IH SCH ×3 (08:10→20:41)
[2019-06-24] MEDS: IPRATROPIUM/ALBUTEROL SULFATE 3 ML AMPUL.NEB IH SCH ×3 (08:10→20:41)
[2019-06-24] MEDS: PANTOPRAZOLE 40 MG TAB PO SCH ×2 (09:07→22:06)
[2019-06-24] MEDS: DOCUSATE SODIUM 100 MG CAP PO SCH ×2 (09:07→22:24)
[2019-06-24] MEDS: HEPARIN 5,000 UNIT/1 ML VIAL SUB-Q SCH ×2 (09:08→22:25)
[2019-06-24] MEDS: guaiFENesin ER 600 MG TAB PO SCH ×2 (09:08→22:06)
[2019-06-24] MEDS: cloNIDine 0.1 MG TAB PO SCH ×2 (09:09→22:06)
[2019-06-24] MEDS: NICOTINE 14 MG/24 HR PATCH TD SCH (09:12)
[2019-06-24] MEDS: INSULIN LISPRO 100 UNIT/ML SUB-Q SCH ×4 (09:12→22:07)
[2019-06-24] MEDS: cefTRIAXone/NS 1 GM/50 ML 1 GM/50 ML BAG IV SCH (09:13)
[2019-06-24] MEDS: AZITHROMYCIN 500 MG in SODIUM CHLORIDE 0.9% 250ML 250 ML IV SCH (11:32)
[2019-06-24] MEDS: HYDROcodone/HOMATROPINE 5-1.5MG /5 ML ORAL LIQD UNIT DOSE PO SCH ×2 (11:32→22:24)
[2019-06-24] MEDS: hydrALAZINE 20 MG/1 ML INJ IV PRN (11:33)
[2019-06-24] MEDS: POLYMYXIN B OU SCH ×4 (15:08→22:21)
[2019-06-24] MEDS: BACITRACIN OU SCH ×4 (15:08→22:21)
[2019-06-24] MEDS: POLYETHYLENE GLYCOL 3350 17 GM POWDER PO PRN (18:21)
[2019-06-24] MEDS: HYDROcodone/ACETAMINOPHEN 5-325 MG TAB PO PRN (18:21)
--- NOTE | 2019-06-24 20:29 | Progress Note ---
Assessment and Plan 53-year-old -[place] female who is an ongoing smoker with a history of COPD, CHF, hypertension, diabetes, GERD, arthritis, hypothyroidism, TIA x5 who presents to [facility] ED via EMS with complaints of progressively worsening shortness of breath and difficulty breathing for the past 3 days. Acute exacerbation COPD -Increased shortness of breath -Increased cough with green sputum production -Continue DuoNebs and Pulmicort, Rocephin and azithromycin, and Mucinex. Patient allergic to Levaquin -IV Solu-Medrol Acute hypoxic respiratory failure -No Baseline home oxygen requirements -Saturation in mid 80s on room air -Currently on supplemental O2 -Monitor saturations -Continue supplemental oxygen wean as tolerated HTN -Monitor BP -Resume home hypertensive meds once medication reconciliation has been completed -IV hydralazine when necessary DM -POC BG monitoring -Scheduled Lantus, and SSI coverage prn -HgbA1C pending GERD -on Protonix BID Obesity -BMI 45.2 -Diet and lifestyle modifications -May benefit from OP weight mgmt program -Pt states that she plans on going to obesity class Tobacco abuse -Current every day smoker -Smokes 1 pack per day -Counseled for cessation -Nicotine patch when necessary Hx CHF -BNP WNL -Troponin negative -Resume home Lasix once medication reconciliation has been completed Pain in the shoulder and knees -Comments patient on Narco DVT PPX -On Heparin and SCD's Advance Directives: No VTE prophylaxis?: Chemical Plan of care discussed with patient/family: Yes Subjective Date of service: 06/24/19 Principal diagnosis: shortness of breath, wheezing, morbid obesity Interval history: Patient still coughing and wheezing. Question narcotic medication for left shoulder and right knee pains. Sitting up in bed Objective - Constitutional Vitals: Vital Signs - 12hr 06/24/19 06/24/19 06/24/19 09:09 10:00 11:00 Temperature 97.6 F Pulse Rate 82 67 Pulse Rate [ Anterior Bilateral Throughout] Respiratory 20 22 Rate Respiratory Rate [Anterior Bilateral Throughout] Blood Pressure 155/81 173/97 O2 Sat by Pulse 96 97 Oximetry 06/24/19 06/24/19 06/24/19 11:33 14:12 17:59 Temperature 97.9 F Pulse Rate 65 86 Pulse Rate [ 65 Anterior Bilateral Throughout] Respiratory 24 Rate Respiratory 22 Rate [Anterior Bilateral Throughout] Blood Pressure 173/97 153/85 O2 Sat by Pulse 95 Oximetry General appearance: Present: no acute distress, well-nourished - EENT Eyes: PERRL, EOM intact Ears: bilateral: normal - Neck Neck: supple, normal ROM - Respiratory Respiratory effort: normal Respiratory: bilateral: diminished - Cardiovascular Rhythm: regular Heart Sounds: Present: S1 & S2. Absent: gallop, rub Extremities: pulses intact, No edema, normal color, Full ROM - Gastrointestinal General gastrointestinal: Present: soft, non-tender, non-distended, normal bowel sounds - Integumentary Integumentary: clear, warm, dry - Musculoskeletal Musculoskeletal: 1, strength equal bilaterally - Neurologic Neurologic: moves all extremities - Psychiatric Psychiatric: memory intact, appropriate mood/affect, intact judgment & insight - Labs CBC & Chem 7: 06/23/19 05:09 06/23/19 05:09 Labs: Abnormal lab results 06/23/19 06/24/19 06/24/19 Range/Units 21:43 08:02 11:13 POC Glucose 291 H 271 H 325 H (70-105) 06/24/19 Range/Units 18:41 POC Glucose 337 H (70-105)
[2019-06-24] MEDS: INSULIN GLARGINE 100 UNITS/ML SUB-Q SCH (22:10)
[2019-06-25] MEDS: HYDROcodone/ACETAMINOPHEN 5-325 MG TAB PO PRN ×3 (00:02→23:01)
[2019-06-25] MEDS: methylPREDNISolone Sod Succinate 125 MG/2 ML INJ IV SCH ×4 (06:09→23:19)
[2019-06-25] MEDS: BUDESONIDE 0.5 MG/2 ML NEBU IH SCH ×2 (08:05→19:55)
[2019-06-25] MEDS: IPRATROPIUM/ALBUTEROL SULFATE 3 ML AMPUL.NEB IH SCH ×3 (08:07→19:55)
[2019-06-25] MEDS: INSULIN LISPRO 100 UNIT/ML SUB-Q SCH ×4 (08:48→23:00)
[2019-06-25] MEDS: HEPARIN 5,000 UNIT/1 ML VIAL SUB-Q SCH ×2 (10:07→23:02)
[2019-06-25] MEDS: cefTRIAXone/NS 1 GM/50 ML 1 GM/50 ML BAG IV SCH (10:08)
[2019-06-25] MEDS: HYDROcodone/HOMATROPINE 5-1.5MG /5 ML ORAL LIQD UNIT DOSE PO SCH ×2 (10:08→23:01)
[2019-06-25] MEDS: cloNIDine 0.1 MG TAB PO SCH ×2 (10:09→23:08)
[2019-06-25] MEDS: PANTOPRAZOLE 40 MG TAB PO SCH ×2 (10:09→23:08)
[2019-06-25] MEDS: DOCUSATE SODIUM 100 MG CAP PO SCH ×2 (10:09→23:02)
[2019-06-25] MEDS: guaiFENesin ER 600 MG TAB PO SCH ×2 (10:09→23:02)
[2019-06-25] MEDS: POLYMYXIN B OU SCH ×4 (10:10→23:10)
[2019-06-25] MEDS: NICOTINE 14 MG/24 HR PATCH TD SCH (10:10)
[2019-06-25] MEDS: BACITRACIN OU SCH ×4 (10:10→23:10)
[2019-06-25] MEDS: AZITHROMYCIN 500 MG in SODIUM CHLORIDE 0.9% 250ML 250 ML IV SCH (11:21)
[2019-06-25] MEDS: POLYETHYLENE GLYCOL 3350 17 GM POWDER PO PRN (11:31)
--- NOTE | 2019-06-25 13:01 | Progress Note ---
Assessment and Plan Assessment and plan: 53-year-old -[place] female who is an ongoing smoker with a history of COPD, CHF, hypertension, diabetes, GERD, arthritis, hypothyroidism, TIA x5 who presents to [facility] ED via EMS with complaints of progressively worsening shortness of breath and difficulty breathing for the past 3 days. Acute exacerbation COPD -Increased shortness of breath -Increased cough with green sputum production -Continue DuoNebs and Pulmicort, Rocephin and azithromycin, and Mucinex. Patient allergic to Levaquin -IV Solu-Medrol will continue to taper Acute hypoxic respiratory failure -No Baseline home oxygen requirements -Saturation in mid 80s on room air -Currently on supplemental O2 recommended to wean. -Monitor saturations -Continue supplemental oxygen wean as tolerated HTN -Monitor BP -Resume home hypertensive meds once medication reconciliation has been completed -IV hydralazine when necessary DM -POC BG monitoring -Scheduled Lantus, and SSI coverage prn -HgbA1C pending GERD -on Protonix BID Obesity -BMI 45.2 -Diet and lifestyle modifications -May benefit from OP weight mgmt program -Pt states that she plans on going to obesity class Tobacco abuse -Current every day smoker -Smokes 1 pack per day -Counseled for cessation -Nicotine patch when necessary Hx CHF -BNP WNL -Troponin negative -Resume home Lasix once medication reconciliation has been completed Pain in the shoulder and knees -Comments patient on Narco DVT PPX -On Heparin and SCD's Patient still with coughing episode rather perfused. For better control of blood sugar insulin has been adjusted. Anticipate discharge in a day or 2 when respiratory status is improved. History Interval history: Patient seen and examined, still reports congestion and cough with shortness of breath, requesting for a stronger cough medication. Hospitalist Physical - Physical exam Narrative exam: VITAL SIGNS: Reviewed. GENERAL: The patient appears normally developed, Vital signs as documented. HEAD: No signs of head trauma. EYES: Pupils are equal. Extraocular motions intact. EARS: Hearing grossly intact. MOUTH: Oropharynx is normal. NECK: No adenopathy, no JVD. CHEST: Chest with diffuse wheezing r breath sounds bilaterally. No rales, or rhonchi. CARDIAC: Regular rate and rhythm. S1 and S2, without murmurs, gallops, or rubs. VASCULAR: No Edema. Peripheral pulses normal and equal in all extremities. ABDOMEN: Soft, non tender and non distended. No rebound or guarding, and no masses palpated. Bowel Sounds normal. MUSCULOSKELETAL: Good range of motion of all major joints. Extremities without clubbing, cyanosis or edema. NEUROLOGIC EXAM: Alert and oriented x 3 No focal sensory or strength deficits. Speech normal truncated by cough otherwise. Follows commands. PSYCHIATRIC: Mood normal. SKIN: detial exam as documented in skin assessment - Constitutional Vitals: Temp Pulse Resp BP Pulse Ox 98.3 F 61 22 138/98 93 06/25/19 11:17 06/25/19 11:17 06/25/19 11:17 06/25/19 11:17 06/25/19 11:17 General appearance: Present: no acute distress, well-nourished Results - Labs CBC & Chem 7: 06/23/19 05:09 06/23/19 05:09 Labs: Laboratory Last Values WBC 5.5 K/mm3 (4.5-11.0) 06/23/19 05:09 RBC 3.79 M/mm3 (3.65-5.03) 06/23/19 05:09 Hgb 10.9 gm/dl (10.1-14.3) 06/23/19 05:09 Hct 33.9 % (30.3-42.9) 06/23/19 05:09 MCV 90 fl (79-97) 06/23/19 05:09 MCH 29 pg (28-32) 06/23/19 05:09 MCHC 32 % (30-34) 06/23/19 05:09 RDW 15.9 % (13.2-15.2) H 06/23/19 05:09 Plt Count 265 K/mm3 (140-440) 06/23/19 05:09 Lymph % (Auto) 13.5 % (13.4-35.0) 06/23/19 05:09 [place] % (Auto) 1.2 % (0.0-7.3) 06/23/19 05:09 Eos % (Auto) 0.0 % (0.0-4.3) 06/23/19 05:09 Baso % (Auto) 0.1 % (0.0-1.8) 06/23/19 05:09 Lymph # 0.7 K/mm3 (1.2-5.4) L 06/23/19 05:09 Archer # 0.1 K/mm3 (0.0-0.8) 06/23/19 05:09 Eos # 0.0 K/mm3 (0.0-0.4) 06/23/19 05:09 Baso # 0.0 K/mm3 (0.0-0.1) 06/23/19 05:09 Seg Neutrophils % 85.2 % (40.0-70.0) H 06/23/19 05:09 Seg Neutrophils # 4.7 K/mm3 (1.8-7.7) 06/23/19 05:09 PT 13.2 Sec. (12.2-14.9) 06/22/19 16:54 INR 0.99 (0.87-1.13) 06/22/19 16:54 Sodium 141 mmol/L (137-145) 06/23/19 05:09 Potassium 4.1 mmol/L (3.6-5.0) D 06/23/19 05:09 Chloride 99.8 mmol/L (98-107) 06/23/19 05:09 Carbon Dioxide 23 mmol/L (22-30) 06/23/19 05:09 Anion Gap 22 mmol/L 06/23/19 05:09 BUN 15 mg/dL (7-17) 06/23/19 05:09 Creatinine 1.1 mg/dL (0.7-1.2) 06/23/19 05:09 Estimated GFR > 60 ml/min 06/23/19 05:09 BUN/Creatinine Ratio 14 % 06/23/19 05:09 Glucose 428 mg/dL (65-100) H 06/23/19 05:09 POC Glucose 382 (70-105) H 06/25/19 11:13 Hemoglobin A1c 8.2 % (4-6) H 06/23/19 05:09 Calcium 8.6 mg/dL (8.4-10.2) 06/23/19 05:09 Total Bilirubin < 0.20 mg/dL (0.1-1.2) 06/22/19 16:54 Direct Bilirubin < 0.2 mg/dL (0-0.2) 06/22/19 16:54 Indirect Bilirubin 0.0 mg/dL 06/22/19 16:54 AST 19 units/L (5-40) 06/22/19 16:54 ALT 23 units/L (7-56) 06/22/19 16:54 Alkaline Phosphatase 68 units/L (35-129) 06/22/19 16:54 Troponin T < 0.010 ng/mL (0.00-0.029) 06/22/19 16:54 NT-Pro-B Natriuret Pep 183.7 pg/mL (0-900) 06/22/19 16:54 Total Protein 7.1 g/dL (6.3-8.2) 06/22/19 16:54 Albumin 3.7 g/dL (3.9-5) L 06/22/19 16:54 Albumin/Globulin Ratio 1.1 % 06/22/19 16:54 Active Medications - Current Medications Current Medications: Generic Name Dose Route Start Last Admin Trade Name Freq PRN Reason Stop Dose Admin Acetaminophen 650 mg 06/22/19 20:09 06/23/19 00:28 Tylenol PO 650 mg Q4H PRN Administration Pain MILD(1-3)/Fever >100.5/MALDONADO Acetaminophen/Hydrocodone Bitart 1 each 06/24/19 18:14 06/25/19 06:09 [place] 5/325 PO 1 each Q6H PRN Administration Pain, Moderate (4-6) Albuterol/Ipratropium 1 ampul 06/23/19 14:00 06/25/19 08:07 Duoneb *Not For Prn Use* IH 1 ampul TIDRT RADAMES Administration Bacitracin/Polymyxin B Sulfate 1 applic 06/24/19 11:00 06/25/19 10:10 Polysporin OU 06/30/19 22:01 1 applic QID RADAMES Administration Budesonide 0.5 mg 06/23/19 08:00 06/25/19 08:05 Pulmicort IH 0.5 mg Q12HRT RADAMES Administration Clonidine HCl 0.1 mg 06/22/19 22:00 06/25/19 10:09 Catapres PO 0.1 mg BID RADAMES Administration Dextrose 50 ml 06/22/19 20:09 D50w (25gm) Syringe IV Q30MIN PRN Hypoglycemia Protocol Docusate Sodium 100 mg 06/22/19 22:00 06/25/19 10:09 Colace PO 100 mg BID RADAMES Administration Guaifenesin 600 mg 06/22/19 22:00 06/25/19 10:09 Mucinex Er PO 600 mg BID RADAMES Administration Guaifenesin 20 ml 06/25/19 12:53 Guaifenesin Dm Syrup PO Q4H PRN Cough Heparin Sodium (Porcine) 5,000 unit 06/22/19 22:00 06/25/19 10:07 Heparin SUB-Q 5,000 unit Q12HR RADAMES Administration Hydralazine HCl 10 mg 06/22/19 20:19 06/24/19 11:33 Apresoline IV 10 mg Q4HR PRN Administration Blood Pressure Hydrocodone Bit/Homatropine Methylb 5 ml 06/24/19 10:00 06/25/19 10:08 Hydromet PO 5 ml BID RADAMES Administration Ceftriaxone Sodium 1 gm in 50 mls @ 100 mls/hr 06/22/19 21:00 06/25/19 10:08 Rocephin/Ns 1 Gm/50 Ml IV 100 mls/hr Q24HR RADAMES Administration Protocol Azithromycin 500 mg/ Sodium 250 mls @ 250 mls/hr 06/22/19 21:00 06/25/19 11:21 Chloride IV 06/26/19 10:59 250 mls/hr Q24HR [facility] Administration Protocol Insulin Glargine 20 units 06/25/19 22:00 Lantus SUB-Q QHS [facility] Insulin Human Lispro 0 unit 06/22/19 22:00 06/25/19 08:48 Humalog SUB-Q 4 unit ACHS [facility] Administration Protocol Methylprednisolone Sodium Succinate 60 mg 06/25/19 11:30 Solu-Medrol IV Q8HR [facility] Nicotine 14 mg 06/22/19 21:00 06/25/19 10:10 Habitrol TD Not Given QDAY [facility] Ondansetron HCl 4 mg 06/22/19 20:09 Zofran IV Q8H PRN Nausea And Vomiting Pantoprazole Sodium 40 mg 06/22/19 22:00 06/25/19 10:09 Protonix PO 40 mg BID RADAMES Administration Polyethylene Glycol 17 gm 06/24/19 17:11 06/25/19 11:31 Miralax 3350 PO 17 gm QDAY PRN Administration Constipation Sodium Chloride 10 ml 06/22/19 22:00 06/25/19 10:11 Sodium Chloride Flush Syringe 10 Ml IV 10 ml BID RADAMES Administration Sodium Chloride 10 ml 06/22/19 20:09 Sodium Chloride Flush Syringe 10 Ml IV PRN PRN LINE FLUSH
[2019-06-25] MEDS: guaiFENesin DM 200/20 MG ORAL LIQD 10 ML PO PRN (13:35)
[2019-06-25] MEDS: hydrALAZINE 20 MG/1 ML INJ IV PRN (20:17)
[2019-06-25] MEDS ORDERED: INSULIN GLARGINE 100 UNITS/ML SUB-Q SCH (22:00)
[2019-06-26] MEDS: methylPREDNISolone Sod Succinate 125 MG/2 ML INJ IV SCH (06:19)
[2019-06-26] MEDS: guaiFENesin DM 200/20 MG ORAL LIQD 10 ML PO PRN ×2 (06:19→06:24)
[2019-06-26] MEDS: HYDROcodone/ACETAMINOPHEN 5-325 MG TAB PO PRN (06:20)
[2019-06-26] MEDS: INSULIN LISPRO 100 UNIT/ML SUB-Q SCH ×2 (07:30→11:59)
[2019-06-26] MEDS: IPRATROPIUM/ALBUTEROL SULFATE 3 ML AMPUL.NEB IH SCH (08:17)
[2019-06-26] MEDS: BUDESONIDE 0.5 MG/2 ML NEBU IH SCH (08:18)
[2019-06-26] MEDS: AZITHROMYCIN 500 MG in SODIUM CHLORIDE 0.9% 250ML 250 ML IV SCH (09:18)
[2019-06-26] MEDS: NICOTINE 14 MG/24 HR PATCH TD SCH (09:20)
[2019-06-26] MEDS: guaiFENesin ER 600 MG TAB PO SCH (09:21)
[2019-06-26] MEDS: DOCUSATE SODIUM 100 MG CAP PO SCH (09:21)
[2019-06-26] MEDS: PANTOPRAZOLE 40 MG TAB PO SCH (09:22)
[2019-06-26] MEDS: HEPARIN 5,000 UNIT/1 ML VIAL SUB-Q SCH (09:23)
[2019-06-26 09:30] VITALS: BP 140/79
[2019-06-26] MEDS: HYDROcodone/HOMATROPINE 5-1.5MG /5 ML ORAL LIQD UNIT DOSE PO SCH (09:30)
[2019-06-26] MEDS: cloNIDine 0.1 MG TAB PO SCH (09:30)
[2019-06-26] MEDS ORDERED: HYDROCODONE PO PRN (11:29)
[2019-06-26] MEDS ORDERED: CHLORPHENIRAMINE PO PRN (11:29)
[2019-06-26] MEDS ORDERED: FUROSEMIDE 40 MG TAB PO SCH (12:00)
[2019-06-26] MEDS: BACITRACIN OU SCH (12:02)
[2019-06-26] MEDS: POLYMYXIN B OU SCH (12:02)
[2019-06-26] MEDS: cefTRIAXone/NS 1 GM/50 ML 1 GM/50 ML BAG IV SCH (12:03)
--- NOTE | 2019-06-26 12:03 | Discharge Summary ---
Providers - Providers Date of Admission: 06/22/19 18:43 Date of discharge: 06/26/19 Attending physician: EZEQUIEL ALVARADO Primary care physician: [employer] Hospitalization Condition: Stable Hospital course: Patient is a 53-year-old -[place]inames[place] woman with a history of tobacco dependency, COPD, CHF, hypertension, diabetes, GERD, arthritis, hypothyroidism and TIA x5 who presents to [facility] ED via EMS with SOB and admitted for AE COPD. She is much better, walking the hallways without difficulty. She is without oxygen and has not conversational dyspnea. She wants scripts for her synthroid, lasix, linzess and tussinex. Discharge Diagnoses: Acute exacerbation COPD Acute hypoxic respiratory failure HTN DM type 2 on Insulin, HgbA1C 8.2 GERD Morbid Obesity, BMI 51.8 Tobacco abuse, Counseled for cessation Hx CHF Disposition: DC-01 TO HOME OR SELFCARE Time spent for discharge: 35 minutes Core Measure Documentation - Palliative Care Palliative Care/ Comfort Measures: Not Applicable - Core Measures Any of the following diagnoses?: none - VTE Discharge Requirements Deep Vein Thrombosis/Pulmonary Embolism Present on Admission: No Has pt received <5 days of overlap therapy or INR<2.0: No Anticoagulant overlap therapy prescribed at discharge: No Contraindication No Overlap Therapy order at DC: Not Indicated Exam - Physical Exam Narrative exam: Gen: WDWN, NAD, Awake, Alert, Orientated x 3, bmi 51.8 HEENT: NCAT, EOMI, PERRL, OP Clear Neck: supple, no adenopathy, no thyromegaly, no JVD CVS/Heart: RRR, normal S1S2, pulses present bilaterally Chest/Lungs: Symmetrical chest expansion, good air entry bilaterally GI/Abdomen: soft, NTND, good bowel sounds, no guarding or rebound /Bladder: no suprapubic tenderness, no CVA or paraspinal tenderness Extermity/Skin: no c/c/e, no obvious rash MSK: FROM x 4 Neuro: CN 2-12 grossly intact, no new focal deficits Psych: calm - Constitutional Vitals: Temp Pulse Resp BP Pulse Ox 99.0 F 78 20 140/79 93 06/26/19 06:05 06/26/19 09:30 06/26/19 06:05 06/26/19 09:30 06/26/19 06:05 Plan Activity: other (no strenous activity unless cleared by PCP) Diet: low salt, diabetic Special Instructions: record daily BP diary, record blood sugar diary, smoking cessation Follow up with: PRIMARY CARE, [Primary Care Provider] - 7 Days SAMIRA TAMAYO MD [Staff Physician] - 7 Days Prescriptions: cloNIDine [Catapres] 0.1 mg PO BID #60 tablet Nicotine [Habitrol] 14 mg TD QDAY #14 patch Furosemide [Lasix TAB] 40 mg PO QDAY #30 tablet Linzess 250 mg PO HS #30 HYDROcodone/APAP 5-325 [[place] 5-325 mg TAB] 1 each PO Q6HR PRN #10 tablet PRN Reason: Pain Budesonide/Formoterol Fumarate [Symbicort 160-4.5 Mcg Inhaler] 2 puff IH BID 30 Days #1 hfa.aer.ad Levothyroxine [Synthroid] 150 mcg PO DAILY@0600 #30 tablet Tussionex (Nf) 5 mg PO Q12HR PRN 5 Days #30 PRN Reason: Cough Ipratropium/Albuterol Sulfate [DUONEB *Not for PRN Use*] 1 ampul IH TIDRT 5 Days #30 ampul.neb
[2019-06-26] MEDS ORDERED: LINZESS PO SCH (22:00)
[2019-06-27] MEDS ORDERED: LEVOTHYROXINE 150 MCG TAB PO SCH (06:00)
== END 2019-06-26 12:41 | disposition home or self-care (01) | DRG 189 ==
LOC: ED 15:43 → 3A 18:43
PROVIDERS: ADMIT Internal Medicine; ATTEND Internal Medicine
DX: J96.01 Acute respiratory failure with hypoxia (principal); J44.1 Chronic obstructive pulmonary disease with (acute) exacerbation; Z68.43 Body mass index [BMI] 50.0-59.9, adult; I11.0 Hypertensive heart disease with heart failure; I50.9 Heart failure, unspecified; F17.200 Nicotine dependence, unspecified, uncomplicated; E11.9 Type 2 diabetes mellitus without complications; K21.9 Gastro-esophageal reflux disease without esophagitis; E89.0 Postprocedural hypothyroidism; Z96.643 Presence of artificial hip joint, bilateral; M19.90 Unspecified osteoarthritis, unspecified site; E66.01 Morbid (severe) obesity due to excess calories; M25.569 Pain in unspecified knee; M25.519 Pain in unspecified shoulder; Z86.73 Personal history of transient ischemic attack (TIA), and cerebral infarction without residual deficits; Z79.4 Long term (current) use of insulin; Z71.6 Tobacco abuse counseling; Z88.2 Allergy status to sulfonamides; Z88.1 Allergy status to other antibiotic agents; Z91.040 Latex allergy status; Z79.899 Other long term (current) drug therapy
CPT/HCPCS: 36415; 71045; 80048; 80076; 82962; 83036; 83880; 84484; 85025; 85610; 87116; 93005; 93010; 94640; 94644; 99406; G0378; J0360; J0456; J0696; J1644; J1815; J1940; J2270; J2405; J2930; J3480; J7050

== ENCOUNTER 2020-09-12 21:00 | Emergency (ER) | payer MEDICARE ==
[2020-09-12 22:17] LABS: Basophils # (Auto) 0.1 K/mm3 (0.0-0.1); Basophils % (Auto) 0.7 % (0.0-1.8); Eosinophils % (Auto) 0.4 % (0.0-4.3); Hematocrit 39.3 % (30.3-42.9); Hemoglobin 13.1 gm/dl (10.1-14.3); Lymphocytes # (Auto) 3.1 K/mm3 (1.2-5.4); Lymphocytes % (Auto) 28.5 % (13.4-35.0); Mean Corpuscular HGB Conc 33 % (30-34); Mean Corpuscular Volume 88 fl (79-97); Monocytes # (Auto) 0.5 K/mm3 (0.0-0.8); Monocytes % (Auto) 4.5 % (0.0-7.3); Platelet Count 328 K/mm3 (140-440); Red Blood Count 4.48 M/mm3 (3.65-5.03); Red Cell Distribution Width 15.3 % (13.2-15.2)
[2020-09-12 22:36] LABS: Alanine Aminotransferase 15 units/L (7-56); Albumin 3.9 g/dL (3.9-5); BUN/Creatinine Ratio 24; Blood Urea Nitrogen 24 mg/dL (7-17); Calcium 8.6 mg/dL (8.4-10.2); Hemolysis Index 19
--- NOTE | 2020-09-12 22:37 | Emergency Department Report ---
ED General Adult HPI - General Chief complaint: Extremity Injury, Lower Stated complaint: LEG PAIN Source: patient, EMS Mode of arrival: Wheelchair Limitations: No Limitations - History of Present Illness Initial comments: 55-year-old -[place] female with a history of arthritis asthma congestive heart failure COPD CVA x5 TIAs last one in 2016, diabetes, GERD and hypertension. She also has a history of hypothyroidism obesity. Presents to the emergency room complaining of bilateral leg cramping and throbbing as well as a metal taste in her mouth x2 days. Patient was seen at [facility] yesterday and states that they were not able to give her an IV secondary to and having difficulty sticking. Patient reports that she takes Lasix and HCTZ. Patient is on insulin level thyroxine clonidine Nexium. Patient states that she did not take her Percocet 10 mg today. Last dose was yesterday. Patient is on chronic pain medication. Patient states that she had a pain shot at [facility]. Patient states her next appointment is October 28 with her primary care provider. - Related Data Home Medications Medication Instructions Recorded Confirmed Last Taken Polymyxin B Sulfate 10,000 units OS Q3HR MDD x 7days 06/23/19 06/23/19 Unknown Previous Rx's Medication Instructions Recorded Last Taken Type Esomeprazole Magnesium [NexIUM] 40 mg PO QDAY 15 Days #15 03/16/19 Unknown Rx capsule. predniSONE [Deltasone] 20 mg PO QDAY #5 tab 03/24/19 Unknown Rx Acetaminophen [Acetaminophen TAB] 2 tab PO Q4H PRN #15 tablet 06/26/19 Unknown Rx Albuterol Mdi (or & Nicu Only) 2 puff IH QID PRN #1 inhalation 06/26/19 Unknown Rx [ProAir HFA Inhaler] Benzonatate [Tessalon Perles] 100 mg PO Q8HR #9 capsule 06/26/19 Unknown Rx Budesonide/Formoterol Fumarate 2 puff IH BID 30 Days #1 hfa.aer.ad 06/26/19 Unknown Rx [Symbicort 160-4.5 Mcg Inhaler] Furosemide [Lasix TAB] 40 mg PO QDAY #30 tablet 06/26/19 Unknown Rx HYDROcodone/APAP 5-325 [[place] 1 each PO Q6HR PRN #10 tablet 06/26/19 Unknown Rx 5-325 mg TAB] Insulin Glargine [Lantus VIAL] 20 units SUB-Q QHS units 06/26/19 Unknown Rx Ipratropium/Albuterol Sulfate 1 ampul IH TIDRT 5 Days #30 06/26/19 Unknown Rx [DUONEB *Not for PRN Use*] ampul.neb Levothyroxine [Synthroid] 150 mcg PO DAILY@0600 #30 tablet 06/26/19 Unknown Rx Linzess 250 mg PO HS #30 06/26/19 Unknown Rx Nicotine [Habitrol] 14 mg TD QDAY #14 patch 06/26/19 Unknown Rx Tussionex (Nf) 5 mg PO Q12HR PRN 5 Days #30 06/26/19 Unknown Rx cloNIDine [Catapres] 0.1 mg PO BID #60 tablet 06/26/19 Unknown Rx Naproxen 500 mg PO BID PRN #30 tablet 09/17/19 Unknown Rx Baclofen [Lioresal] 10 mg PO TID #15 tab 09/13/20 Unknown Rx Allergies Allergy/AdvReac Type Severity Reaction Status Date / Time latex Allergy Unknown Verified 04/03/19 17:46 levofloxacin [From Levaquin] Allergy Unknown Verified 04/03/19 17:46 Sulfa (Sulfonamide Allergy Unknown Verified 04/03/19 17:46 Antibiotics) ED Review of Systems ROS: Stated complaint: LEG PAIN Other details as noted in HPI ED Past Medical Hx - Past Medical History Previous Medical History?: Yes Hx Hypertension: Yes Hx CVA: Yes (x5 TIA . 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 predniSONE [Deltasone] 20 mg PO QDAY #5 tab 03/24/19 Unknown Rx Polymyxin B Sulfate 10,000 units OS Q3HR MDD x 7days 06/23/19 06/23/19 Unknown History Acetaminophen [Acetaminophen TAB] 2 tab PO Q4H PRN #15 tablet 06/26/19 Unknown Rx Albuterol Mdi (or & Nicu Only) 2 puff IH QID PRN #1 inhalation 06/26/19 Unknown Rx [ProAir HFA Inhaler] Benzonatate [Tessalon Perles] 100 mg PO Q8HR #9 capsule 06/26/19 Unknown Rx Budesonide/Formoterol Fumarate 2 puff IH BID 30 Days #1 hfa.aer.ad 06/26/19 Unknown Rx [Symbicort 160-4.5 Mcg Inhaler] Furosemide [Lasix TAB] 40 mg PO QDAY #30 tablet 06/26/19 Unknown Rx HYDROcodone/APAP 5-325 [Cardwell 1 each PO Q6HR PRN #10 tablet 06/26/19 Unknown Rx 5-325 mg TAB] Insulin Glargine [Lantus VIAL] 20 units SUB-Q QHS units 06/26/19 Unknown Rx Ipratropium/Albuterol Sulfate 1 ampul IH TIDRT 5 Days #30 06/26/19 Unknown Rx [DUONEB *Not for PRN Use*] ampul.neb Levothyroxine [Synthroid] 150 mcg PO DAILY@0600 #30 tablet 06/26/19 Unknown Rx Linzess 250 mg PO HS #30 06/26/19 Unknown Rx Nicotine [Habitrol] 14 mg TD QDAY #14 patch 06/26/19 Unknown Rx Tussionex (Nf) 5 mg PO Q12HR PRN 5 Days #30 06/26/19 Unknown Rx cloNIDine [Catapres] 0.1 mg PO BID #60 tablet 06/26/19 Unknown Rx Naproxen 500 mg PO BID PRN #30 tablet 09/17/19 Unknown Rx Baclofen [Lioresal] 10 mg PO TID #15 tab 09/13/20 Unknown Rx ED Physical Exam - General Limitations: No Limitations General appearance: alert, in distress - Head Head exam: Present: atraumatic, normocephalic - Eye Eye exam: Present: normal appearance - ENT ENT exam: Present: mucous membranes moist - Neck Neck exam: Present: normal inspection, full ROM - Respiratory Respiratory exam: Present: normal lung sounds bilaterally. Absent: respiratory distress, accessory muscle use - Cardiovascular Cardiovascular Exam: Present: regular rate, normal rhythm. Absent: systolic murmur, diastolic murmur, rubs, gallop - Extremities Exam Extremities exam: Present: full ROM (Bilateral), tenderness (Bilateral). Absent: pedal edema, joint swelling - Back Exam Back exam: Present: normal inspection, full ROM - Neurological Exam Neurological exam: Present: alert, oriented X3, normal gait - Psychiatric Psychiatric exam: Present: normal affect, normal mood - Skin Skin exam: Present: warm, dry, intact, normal color. Absent: rash ED Course Vital Signs 09/12/20 09/13/20 09/13/20 21:46 02:10 02:25 Temperature 98.4 F 98.6 F Pulse Rate 78 75 Respiratory 18 20 20 Rate Blood Pressure 142/89 Blood Pressure 139/78 [Left] O2 Sat by Pulse 96 99 99 Oximetry ED Medical Decision Making - Lab Data Result diagrams: 09/12/20 21:55 09/12/20 21:55 Laboratory Tests 09/12/20 09/12/20 09/12/20 21:55 21:55 21:55 WBC 10.7 RBC 4.48 Hgb 13.1 Hct 39.3 MCV 88 MCH 29 MCHC 33 RDW 15.3 H Plt Count 328 Lymph % (Auto) 28.5 [place] % (Auto) 4.5 Eos % (Auto) 0.4 Baso % (Auto) 0.7 Lymph # (Auto) 3.1 [place] # (Auto) 0.5 Eos # (Auto) 0.0 Baso # (Auto) 0.1 Seg Neutrophils % 65.9 Seg Neutrophils # 7.1 VBG pH 7.436 H Sodium 141 Potassium 3.5 L Chloride 94.7 L Carbon Dioxide 36 H Anion Gap 14 BUN 24 H Creatinine 1.0 Estimated GFR > 60 BUN/Creatinine Ratio 24 Glucose 192 H Calcium 8.6 Phosphorus 2.80 Magnesium 2.10 Total Bilirubin < 0.20 AST 10 ALT 15 Alkaline Phosphatase 76 Total Protein 7.2 Albumin 3.9 Albumin/Globulin Ratio 1.2 Urine Color Urine Turbidity Urine pH Ur Specific [place] Urine Protein Urine Glucose (UA) Urine Ketones Urine Blood Urine Nitrite Urine Bilirubin Urine Urobilinogen Ur Leukocyte Esterase Urine WBC (Auto) Urine RBC (Auto) U Epithel Cells (Auto) Urine Mucus 09/12/20 Unknown WBC RBC Hgb Hct MCV MCH MCHC RDW Plt Count Lymph % (Auto) [place] % (Auto) Eos % (Auto) Baso % (Auto) Lymph # (Auto) [place] # (Auto) Eos # (Auto) Baso # (Auto) Seg Neutrophils % Seg Neutrophils # VBG pH Sodium Potassium Chloride Carbon Dioxide Anion Gap BUN Creatinine Estimated GFR BUN/Creatinine Ratio Glucose Calcium Phosphorus Magnesium Total Bilirubin AST ALT Alkaline Phosphatase Total Protein Albumin Albumin/Globulin Ratio Urine Color Yellow Urine Turbidity Clear Urine pH 6.0 Ur Specific [place] 1.027 Urine Protein <15 mg/dl Urine Glucose (UA) 150 Urine Ketones Neg Urine Blood Neg Urine Nitrite Neg Urine Bilirubin Neg Urine Urobilinogen < 2.0 Ur Leukocyte Esterase Tr Urine WBC (Auto) 2.0 Urine RBC (Auto) 2.0 U Epithel Cells (Auto) 2.0 Urine Mucus Few - Medical Decision Making 55-year-old -[place] female with a history of arthritis asthma congestive heart failure COPD CVA x5 TIAs last one in 2017, diabetes, GERD and hypertension. She also has a history of hypothyroidism obesity. Presents to the emergency room complaining of bilateral leg cramping and throbbing as well as a metal taste in her mouth x2 days. Patient was seen at [facility] yesterday and states that they were not able to give her an IV secondary to and having difficulty sticking. Patient reports that she takes Lasix and HCTZ. Patient is on insulin level thyroxine clonidine Nexium. Patient states that she did not take her Percocet 10 mg today. Last dose was yesterday. Patient is on chronic pain medication. Patient states that she had a pain shot at [facility]. Patient states her next appointment is October 28 with her primary care provider. IV normal saline 250 mL. Patient is a congestive heart failure patients that do not want her over flutter. Will discharge patient with a prescription for baclofen for muscle spasms and to have her follow-up with her primary care provider. I informed charge nurse that patient is going to need a Medicaid ride at 01 34 this morning. Critical care attestation.: If time is entered above; I have spent that time in minutes in the direct care of this critically ill patient, excluding procedure time. ED Disposition Clinical Impression: Muscle spasms of both lower extremities Disposition: TO HOME OR SELFCARE Is pt being admited?: No Does the pt Need Aspirin: No Condition: Stable Instructions: Muscle Cramps and Spasms, [id number] Additional Instructions: Labs are stable. Vital signs are stable. Discussed génesis with patient she can take the muscle relaxant as prescribed. Increase your fluid intake try to increase her potassium intake such as a banana every day while she is on 2 diuretics. Please take your pain medication as needed. And to follow-up with her primary care provider in the next 3 to 5 days. Prescriptions: Baclofen [Lioresal] 10 mg PO TID #15 tab Referrals: PRIMARY CARE, [Primary Care Provider] - 3-5 Days Your, primary care provider [Other] - 3-5 Days Forms: Work/School Release Form(ED)
[2020-09-12 23:38] LABS: Bilirubin,Urine NEG (Negative); Blood,Urine NEG (Negative); Color,Urine Yellow (Yellow); Mucus,Urine FEW /HPF; Protein,Urine <15 mg/dL mg/dL (Negative); Urobilinogen,Urine < 2.0 mg/dL (<2.0)
[2020-09-12] MEDS ORDERED: SODIUM CHLORIDE 0.9% 1000 ML 1,000 ML IV ONE (23:47)
[2020-09-13 02:26] VITALS: BP 139/78
== END 2020-09-13 02:30 | disposition home or self-care (01) ==
LOC: ED 21:00
DX: M62.831 Muscle spasm of calf (principal); I11.0 Hypertensive heart disease with heart failure; I50.9 Heart failure, unspecified; E11.9 Type 2 diabetes mellitus without complications; K21.9 Gastro-esophageal reflux disease without esophagitis; M19.91 Primary osteoarthritis, unspecified site; J44.9 Chronic obstructive pulmonary disease, unspecified; F17.200 Nicotine dependence, unspecified, uncomplicated; Z86.73 Personal history of transient ischemic attack (TIA), and cerebral infarction without residual deficits; Z90.89 Acquired absence of other organs; Z98.890 Other specified postprocedural states; Z88.2 Allergy status to sulfonamides; Z91.040 Latex allergy status; Z88.1 Allergy status to other antibiotic agents
CPT/HCPCS: 36415; 80053; 81001; 82805; 83735; 84100; 85025; 96360; 99284; J7030